=== PATIENT | male | born 1980 | race Two or more races ===

== ENCOUNTER 2024-05-23 08:40 | Outpatient (CLI) | payer OTHER | END 2024-05-23 08:49 | disposition home or self-care (01) | LOC: RAD 08:40 | PROVIDERS: ATTEND Specialist | DX: Z01.818 Encounter for other preprocedural examination (principal) ==

== ENCOUNTER 2024-05-23 08:59 | Outpatient (CLI) | payer OTHER ==
[2024-05-23 11:07] LABS: URINE APPEARANCE Clear; URINE BILIRRUBIN Negative (NEGATIVE); URINE BLOOD Negative; URINE COLOR Yellow; URINE GLUCOSE Negative (NEGATIVE); URINE KETONE Negative (NEGATIVE); URINE LEUKOCYTE Negative; URINE NITRATE Negative; URINE PROTEIN Negative (NEGATIVE); URINE UROBILINOGEN 0.2 E.U./dl
[2024-05-23 11:12] LABS: URINE BACTERIA 30.5 uL (0.0-1933); URINE WBC 2.6 uL (0.0-23.2)
[2024-05-23 11:25] LABS: INR 0.97; PARTIAL THROMBOPLASTIN TIME 29.2 SECONDS (22.0-34.0); PROTHROMBIN TIME 10.6 SECONDS (9.0-11.5); URINE RBC 0.5 uL (0.0-20.8)
[2024-05-23 11:39] LABS: CALCIUM 9.5 mg/dL (8.5-10.1); CREATININE SERUM 1.15 mg/dL (0.70-1.30); GFR 69.74; POTASSIUM 5.05 mEq/L (3.5-5.1)
[2024-05-23 12:23] LABS: HEMATOCRIT 43.3 % (39.0-48.0); HEMOGLOBIN 14.7 g/dL (13-16.00); MEAN CELL VOLUME 87.5 fL (80.0-100.00); MEAN CORPUSCULAR HEMOGLOBIN 29.7 pg (27.00-32.0); MEAN CORPUSCULAR HGB CONC 33.9 g/dl (32.0-36.0); PLATELET COUNT 292 K/uL (150-450); RED BLOOD COUNT 4.95 M/uL (4.00-6.00); RED CELL DISTRIBUTION WIDTH 13.9 % (11.5-14.5)
== END 2024-05-23 09:02 | disposition home or self-care (01) ==
LOC: LAB 08:59
PROVIDERS: ATTEND Specialist
DX: D68.9 Coagulation defect, unspecified (principal); Z01.812 Encounter for preprocedural laboratory examination